=== PATIENT | female | born 1975 | race Two or more races ===

== ENCOUNTER 2019-10-04 06:00 | Day surgery (SDC) | payer OTHER | END 2019-10-04 17:25 | disposition home or self-care (01) | LOC: CIR.AMB 06:00 | PROVIDERS: ATTEND Urology | DX: N20.1 Calculus of ureter (principal) ==

== ENCOUNTER 2019-10-04 06:37 | Outpatient (CLI) | payer OTHER | END 2019-10-04 06:45 | disposition home or self-care (01) | LOC: LAB 06:37 | PROVIDERS: ATTEND Internal Medicine | DX: E16.1 Other hypoglycemia (principal) ==